=== PATIENT | male | born 1995 | race Caucasian/White ===

== ENCOUNTER 2019-07-05 10:01 | Emergency (ER) | payer OTHER, SELFPAY ==
[2019-07-05 10:07] VITALS: BP 133/71; PULSE 71; RESP 14; TEMP 36.7; O2SAT 99
[2019-07-05 10:11] VITALS: PULSE 71
--- NOTE | 2019-07-05 10:14 | DI.RAD.S_ITS ---
PROCEDURE: XR SHOULDER RT MIN 2V INDICATIONS: shoudler pain, felt pop. TECHNIQUE: 3 views of the shoulder were acquired. COMPARISON: None. FINDINGS: Bones: No fractures or dislocations. No suspicious bony lesions. Visualized ribs appear intact. Soft tissues: No suspicious soft tissue calcifications. IMPRESSION: Source of current symptoms is not seen. There is relative inferior subluxation of the humeral head in relationship to the glenoid fossa, potentially an indication of ligamentous injury. Depending on clinical status followup by MR scanning may be warranted. Dictated by: Elian Arcos M.D. on 07/05/2019 at 10:53 Approved by: Elian Arcos M.D. on 07/05/2019 at 10:54
--- NOTE | 2019-07-05 10:24 | ED.UPPEXIN ---
HPI - Extremity Injury (Upper) General Chief Complaint: Extremity Injury, Upper Stated Complaint: right shoulder injury today/L&I Time Seen by Provider: 07/05/19 10:14 Source: patient Mode of arrival: Ambulatory Limitations: no limitations History of Present Illness HPI narrative: 23-year-old male here for evaluation when he thinks is a dislocated right shoulder. 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 He has never had a dislocated shoulder in the past. Has had pain with moving of the shoulder. No other injuries reported from the event. Related Data Home Medications Medication Instructions Recorded Confirmed No Known Home Medications 07/05/19 07/05/19 Allergies Allergy/AdvReac Type Severity Reaction Status Date / Time No Known Drug Allergies Allergy Verified 07/05/19 10:44 Review of Systems Constitutional Constitutional: Denies headache(s) ENT Ears, Nose, Mouth, and Throat: Denies headache(s) Cardiovascular Cardiovascular: Denies chest pain and Denies dyspnea Respiratory Respiratory: Denies dyspnea Gastrointestinal Gastrointestinal: Denies abdominal pain Musculoskeletal Musculoskeletal: Denies myalgias and Reports arthralgias (Right shoulder pain) Neurologic Neurologic: Denies behavioral changes and Denies headache(s) Psychiatric Psychiatric: Denies behavioral changes Hematologic/Lymphatic Hematologic/Lymphatic: Denies easy bleeding and Denies easy bruising Patient History Medical History Patient denies medical problems (Acute) Social History Smoking Status: Never smoker Social History Smoking Status: Never smoker alcohol intake frequency: 0-2 drinks per day Substance Use Type: does not use Exam Initial Vital Signs Initial Vital Signs: Vital Signs Temperature 98.1 F 07/05/19 10:07 Pulse Rate 71 07/05/19 10:07 Respiratory Rate 14 07/05/19 10:07 Blood Pressure 133/71 07/05/19 10:07 Pulse Oximetry 99 07/05/19 10:07 Const General: cooperative, comfortable and well developed Orientation: alert, awake and oriented x3 HENMT Head: normal to inspection and normocephalic Resp Effort & Inspection: normal respiratory effort Cardio Rate: regular rate Pulses: radial pulses present on the right Skin Lesions: no lesions Rashes: no rashes Neuro General: alert and awake Cognition: normal cognition Speech: speech normal Extrem General: capillary refill normal Other: Patient with would appears to be a deformity to the left shoulder. He is unable to move his left shoulder without discomfort. Right elbow and right wrist unremarkable. Psych Appearance: grossly normal and well kempt Procedures Orthopedic Joint Reduction Joint #1: Time Out Performed: Yes Side: right Joint Reduction Location: shoulder Shoulder Technique Used (if applicable): other Technique used: traction/counter-traction Post-reduction neuro exam: intact and no change Post-reduction vascular: intact and no change Post Reduction X-Ray Obtained: Yes Post Reduction X-Ray Results: reduced Splint Applied: No Patient Tolerated Procedure: Well and No complications Orthopedic Splinting/Casting Injury #1: Side: right Upper Extremity Immobilizer: sling/shoulder immobilizer Post splinting neuro exam: intact Post splinting vascular exam: intact Placed by: Nursing Course Orders Ordered: ED Orders 07/05/19 10:14 XR shoulder RT min 2V Stat 07/05/19 11:09 XR shoulder RT min 2V Stat Vital Signs Vital signs: Vital Signs - 8 hr 07/05/19 10:07 07/05/19 10:11 Temperature 98.1 F Pulse Rate 71 Pulse Rate [Right Radial] 71 Respiratory Rate 14 Blood Pressure 133/71 Pulse Oximetry 99 MDM - Extremity Injury (Upper) Imaging Data Shoulder x-ray: Radiologist's impression: [address] [address] XRay Report Signed Patient: Jose Villarreal TMR#: [id number] : 1995Acct:[id number] Age/Sex: 23 / MDate of Service: 07/05/19 Loc: ED Accession Number: [id number] Procedure: XR shoulder RT min 2V Ordering Provider: Manpreet Alfaro D.O. PROCEDURE: XR SHOULDER RT MIN 2V INDICATIONS: shoudler pain, felt pop. TECHNIQUE: 3 views of the shoulder were acquired. COMPARISON: None. FINDINGS: Bones: No fractures or dislocations. No suspicious bony lesions. Visualized ribs appear intact. Soft tissues: No suspicious soft tissue calcifications. IMPRESSION: Source of current symptoms is not seen. There is relative inferior subluxation of the humeral head in relationship to the glenoid fossa, potentially an indication of ligamentous injury. Depending on clinical status followup by MR scanning may be warranted. Dictated by: Elian Arcos M.D. on 07/05/2019 at 10:53 Approved by: Elian Arcos M.D. on 07/05/2019 at 10:54 Post reduction x-ray: Radiologist's impression: [address] [address] XRay Report Signed Patient: Jose Villarreal TMR#: [id number] : 1995Acct:[id number] Age/Sex: MDate of Service: 07/05/19 Loc: ED Accession Number: [id number] Procedure: XR shoulder RT min 2V Ordering Provider: Manpreet Alfaro D.O. PROCEDURE: XR SHOULDER RT MIN 2V INDICATIONS: post reduction TECHNIQUE: 2 views of the shoulder were acquired. COMPARISON: [facility], CR, XR SHOULDER RT MIN 2V, 07/05/2019, 10:39. FINDINGS: Bones: There is interval reduction of earlier noted anterior-inferior glenohumeral joint dislocation. Shoulder alignment is now anatomic. No obvious fracture is noted. suspicious bony lesions. Visualized ribs appear intact. Soft tissues: No suspicious soft tissue calcifications. IMPRESSION: Interval reduction of earlier noted glenohumeral joint dislocation. No new fracture or dislocation. Shoulder alignment is anatomic. Dictated by: Joo Pastrana M.D. on 07/05/2019 at 11:39 Approved by: Joo Pastrana M.D. on 07/05/2019 at 11:42 MDM Narrative Medical decision making narrative: Patient is neurovascularly intact. The initial x-ray shows subluxation of the right shoulder. I was able to reduce it in the emergency department without any anesthesia. His post reduction neurovascular status was unchanged. There are no fractures on the repeat x-ray. I did discuss motions to avoid also rehab. Discussed ice. Was given a sling for comfort. Patient was instructed you talk to his primary doctor for follow-up. He expressed understanding and agreement plan. Discharge Plan Departure Patient Disposition: Home Clinical Impression: Shoulder subluxation, right Qualifiers: Encounter type: initial encounter Qualified Code(s): S43.001A - Unspecified subluxation of right shoulder joint, initial encounter Instructions: How to Use a Sling, How To Perform RICE (Rest, Ice, Compress, Elevate) Activity Restrictions/Additional Instructions: Use the sling for your comfort. Ice your shoulder like we discussed. Avoid the motions that we discussed. I do recommend you may contact the primary provider. Return to the emergency department for any new or worsening symptoms. Prescriptions: No Action No Known Home Medications RF: 0
--- NOTE | 2019-07-05 11:09 | DI.RAD.S_ITS ---
PROCEDURE: XR SHOULDER RT MIN 2V INDICATIONS: post reduction TECHNIQUE: 2 views of the shoulder were acquired. COMPARISON: [facility], CR, XR SHOULDER RT MIN 2V, 07/05/2019, 10:39. FINDINGS: Bones: There is interval reduction of earlier noted anterior-inferior glenohumeral joint dislocation. Shoulder alignment is now anatomic. No obvious fracture is noted. suspicious bony lesions. Visualized ribs appear intact. Soft tissues: No suspicious soft tissue calcifications. IMPRESSION: Interval reduction of earlier noted glenohumeral joint dislocation. No new fracture or dislocation. Shoulder alignment is anatomic. Dictated by: Joo Pastrana M.D. on 07/05/2019 at 11:39 Approved by: Joo Pastrana M.D. on 07/05/2019 at 11:42
[2019-07-05 12:17] VITALS: BP 125/78; PULSE 70; RESP 17; O2SAT 98
== END 2019-07-05 12:18 | disposition home or self-care (01) ==
PROVIDERS: Emergency Provider Emergency Medicine
DX: S43.001A Unspecified subluxation of right shoulder joint, initial encounter (principal); X50.0XXA Overexertion from strenuous movement or load, initial encounter; Y99.0 Civilian activity done for income or pay
CPT/HCPCS: 23650; 73030; 99282; 99283